=== PATIENT | male | born 1945 | race Caucasian/White ===

== ENCOUNTER 2019-06-10 15:19 | Inpatient (IN) ==
--- NOTE | 2019-06-10 16:53 | EKG Report ---
Test Performed on : 06/10/2019 4:11:18 PM Test Reason : ED. No order in [place] Blood Pressure : / mmHG Vent. Rate : 135 BPM Atrial Rate : 147 BPM P-R Int : 000 ms QRS Dur : 094 ms QT Int : 310 ms P-R-T Axes : 000 028 270 degrees QTc Int : 465 ms Atrial fibrillation. with rapid ventricular response. with occasional ventricular-paced complexes Incomplete right bundle branch block ST & T wave abnormality, consider inferior ischemia ST & T wave abnormality, consider anterolateral ischemia Abnormal ECG No previous ECGs available Unconfirmed Result
[2019-06-10] MEDS ORDERED: CARDIZEM IV ONE (16:58)
[2019-06-10 17:17] LABS: BASO# 0.08 X1000 (0.0-0.2); BASO% 0.9 % (0.0-0.8); EOS# 0.24 X1000 (0.0-0.7); EOS% 2.7 % (0.0-10.0); HEMATOCRIT 49.3 % (42.0-52.0); HEMOGLOBIN 15.4 g/dL (14.0-18.0); IMM GRAN# 0.02 X1000 (0.0-0.04); IMM GRAN% 0.2 % (0.0-0.5); LYMPH# 2.06 X1000 (1.2-3.4); LYMPH% 23.5 % (20.5-51.1); MCH 28.8 PG (27-31); MCHC 31.2 g/dL (33-37); MCV 92.3 FL (81-99); MONO# 0.73 X1000 (0.11-0.59); MONO% 8.3 % (1.7-9.3); MPV 12.6 FL (7.4-10.4); NEUT# 5.63 X1000 (1.4-6.5); NEUT% 64.4 % (42.2-75.2); PLT 125 X1000 (130-400); RBC 5.34 XMIL (4.7-6.1); RDW 13.3 % (11.5-14.5); WBC 8.76 X1000 (4.8-10.8)
[2019-06-10 17:22] LABS: PROTIME 13.3 Seconds (11.0-16.0)
[2019-06-10 17:23] LABS: PTT 26.3 Seconds (22.3-41.8)
--- NOTE | 2019-06-10 17:27 | Diag Imaging Result Doc PS360 ---
EXAM: CHEST-1 VIEW - 06/10/2019 HISTORY: sepsis protocol TECHNIQUE: Portable chest one view COMPARISON: None. FINDINGS: Heart size appears upper normal. There is transvenous cardiac pacemaker present. The lungs appear clear. There are apparent mild pleural thickening and calcified pleural plaque at the mid to upper right chest which are likely long-standing. There is no pleural effusion or pneumothorax identified. IMPRESSION: No evidence of acute disease. Electronically signed by Christiano Martinez 06/10/2019 5:24 PM
[2019-06-10 18:02] LABS: ALBUMIN 3.6 g/dL (3.5-5.0); POTASSIUM 4.4 mmol/L (3.5-5.1)
[2019-06-10] MEDS ORDERED: VANCOMYCIN 1 GM/NS 1 GM/250 ML IVPB IV ONE (18:22)
[2019-06-10 18:26] LABS: CALCIUM 9.5 mg/dL (8.8-10.2); CREATININE 1.3 mg/dL (0.7-1.2); TOTAL BILIRUBIN 0.34 mg/dL (0.20-1.00); TOTAL PROTEIN 7.1 g/dL (6.3-8.3)
[2019-06-10] MEDS ORDERED: ZOSYN 4.5 GM in NS 100 ML IV ONE (18:28)
[2019-06-10] MEDS ORDERED: D50W SYRINGE IV PRN (18:29)
[2019-06-10] MEDS ORDERED: HUMULIN R 100 UNIT in NS 100 ML IV SCH (18:30)
[2019-06-10] MEDS ORDERED: NS 1,000 ML IV ONE ×2 (18:31→19:43)
[2019-06-10 18:33] LABS: URINE SOURCE CLEAN CATCH
[2019-06-10 18:37] LABS: BILIRUBIN URINE NEGATIVE (NEGATIVE); BLOOD URINE SMALL (NEGATIVE); COLOR YELLOW; GLUCOSE URINE >1000 mg/dL (NEGATIVE); KETONE URINE NEGATIVE (NEGATIVE); LEUKOCYTES URINE NEGATIVE (NEGATIVE); NITRITE URINE NEGATIVE (NEGATIVE); PROTEIN URINE NEGATIVE (NEGATIVE); SP GRAVITY URINE 1.032; TURBIDITY URINE CLEAR (CLEAR); UROBILINOGEN URINE NORMAL (NORMAL)
[2019-06-10 18:38] LABS: UR EPITHELIAL CELLS <10 /HPF (<10); URINE BACTERIA NEGATIVE /HPF; URINE RBC <10 /HPF (<10); URINE WBC <10 /HPF (<10)
--- NOTE | 2019-06-10 18:42 | PROVIDER DOCUMENTATION ---
This chart was entered by Adelina Rose Scribe, acting as scribe for Qiana Rogers MD. HPI-General Adult - General Source: patient - History of Present Illness -Gen Adult Nature of Presenting Problems: 74 yowm presents to the ed with c/o pain to left 4th digit on foot. pt sts has been present for 2 days and has worsened since he noticed it. pt does have on rt anterior ahn redness and multiple sores noted. pt on exam is pleasant and happy and is in no distress Location of Pain/Injury: reports: feet (left foot 4th digit/RLE) Quality of Pain: reports: aching Severity: reports: moderate Onset/Duration: reports: 2 days ago Context/Activities at Onset: reports: light activity Modifying Factors: improves with: nothing Associated Symptoms: reports: joint pain, trouble walking (secondary to pain). denies: back/neck pain, chest pain, cough, diarrhea, fever/chills, headaches, nausea, shortness of breath, vomiting Similar Symptoms Previously?: Yes (has poor circulation to BLE and DM) Recently seen or treated by another doctor?: No (has no pcp) <Qiana Rogers - Last Filed: 06/10/19 18:58> <Paola Brown - Last Filed: 06/10/19 19:43> - General Chief Complaint: Sores/Lesions Stated Complaint: INFECTED TOE,SORES ON RT LEG Time Seen by Provider: 06/10/19 16:27 Allergies/Adverse Reactions: Patient Allergies Allergy/AdvReac Type Severity Reaction Status Date / Time procaine [From Novocain] Allergy Unknown Verified 06/10/19 16:52 Home Medications: Home Medication List Medication Instructions Recorded Confirmed Last Taken Type Aspirin 81 mg PO BID 06/10/19 06/10/19 Unknown History Duloxetine [Cymbalta] 20 mg PO BID 06/10/19 06/10/19 Unknown History Metoprolol Tartrate 100 mg PO BID 06/10/19 06/10/19 Unknown History Review of Systems - Adult - REVIEW OF SYSTEMS - ADULT Constitutional: denies: chills, fever Eyes: reports: no symptoms reported Ears, Nose, Mouth & Throat: reports: no symptoms reported Cardiovascular: reports: irregular heart rate, poor circulation. denies: chest pain, syncope Respiratory: denies: cough, shortness of breath Gastrointestinal: denies: diarrhea, nausea, vomiting Genitourinary: reports: no symptoms reported Musculoskeletal: denies: back pain, neck pain Integumentary: reports: see HPI, skin sores/ulcer Neurological: reports: no symptoms reported Psychiatric: reports: no symptoms reported Endocrine: reports: no symptoms reported Hematologic/Lymphatic: reports: no symptoms reported Allergic/Immunologic: reports: no symptoms reported All Other Systems: Reviewed and Negative <Qiana Rogers - Last Filed: 06/10/19 18:58> Past History - Adult - PAST MEDICAL HISTORY-ADULT Review of Records: reports: Old Records Reviewed, Nursing Assessment Review, Medications Reviewed, Social history reviewed & non-contributory. 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) Psychiatric: reports: denies history Endocrine/Immune: reports: Diabetes Diabetes Type: Type 2 Other Conditions: reports: denies history - PRIOR SURGERIES/PROCEDURES Surgical/Procedure History: reports: reviewed, not pertinent - IMMUNIZATION STATUS Childhood Immunizations: See Nurse Assessment Flu Vaccine: See Nurse Assessment - FAMILY HISTORY Family History: reviewed, not pertinent - SOCIAL HISTORY Smoking: denies Substance Use: denies Living Situation: family <Qiana Rogers - Last Filed: 06/10/19 18:58> Physical Exam-General - PHYSICAL EXAM-ADULT Initial Vital Signs Reviewed: Yes - CONSTITUTIONAL General Appearance: appears well, alert, no apparent distress, obese - EYES Eyes: PERRL/EOMI, pink conjunctivae - HEAD, EARS, NOSE, MOUTH & THROAT HENMT: moist mucous membranes, dental decay - NECK Neck: non-tender, full range of motion, supple, normal inspection - RESPIRATORY Respiratory: chest non-tender, lungs clear, normal breath sounds - CARDIOVASCULAR Cardiovascular: irregularly irregular (145). negative: normal peripheral pulses - CHEST (BREASTS) Chest/Breast: deferred - GASTROINTESTINAL (ABDOMEN) Abdominal Exam: normal bowel sounds, non tender, soft - GENITOURINARY Male Genitalia: deferred Rectal Exam: deferred Hemoccult Exam: deferred - LYMPHATIC Lymphatic: no adenopathy - MUSCULOSKELETAL Back Exam: no CVA tenderness, no vertebral tenderness Extremity: erythema (RLE), swelling (left 4th digit), tenderness (left 4th digit with redness and skin change/RLE anterior with healing sores and redness noted) . negative: normal inspection - SKIN Integumentary: normal color (generalized), normal turgor, warm/dry, erythema (RLE), swelling (left 4th toe), tenderness (left 4th toe) - NEUROLOGIC Neurologic: grossly normal - PSYCHIATRIC Psych/Mental Status: normal mood/affect, normal thought content, normal thought process, oriented x 3 <Qiana Rogers - Last Filed: 06/10/19 18:58> Progress - PLAN OF CARE/RESULTS Progress/Plan/Lab Results: Vital Signs - 8 hr 06/10/19 16:03 Temperature 97.9 F Pulse Rate 145 H Respiratory Rate 16 Blood Pressure 97/58 O2 Sat by Pulse Oximetry 93 L Orders Category Date Time Status Cardiac Monitoring DIRECTED Care 06/10/19 16:52 Active IV Insertion ORDERED Care 06/10/19 16:52 Completed Notify MD of + Sepsis Screen NOW Care 06/10/19 16:52 Active Notify Physician As Ordered Care 06/10/19 16:52 Active CHEST-1 VIEW [RAD] Stat Exams 06/10/19 16:52 Ordered BLOOD CULTURE [BLDCUL] Stat Lab 06/10/19 16:55 Ordered CBC WITH DIFF [HEME] Stat Lab 06/10/19 16:55 Ordered CK PROFILE [SP CHEM] Stat Lab 06/10/19 16:55 Ordered COMPREHENSIVE METABOLIC PANEL [CHEM] Stat Lab 06/10/19 16:55 Ordered LACTATE, PLASMA [CHEM] Q3H Lab 06/10/19 16:55 Ordered LACTATE, PLASMA [CHEM] Q3H Lab 06/10/19 20:00 Uncollected LACTATE, PLASMA [CHEM] Q3H Lab 06/10/19 23:00 Uncollected PROTIME WITH INR [COAG] Stat Lab 06/10/19 16:55 Ordered PTT [COAG] Stat Lab 06/10/19 16:55 Ordered TROPONIN T Stat Lab 06/10/19 16:55 Ordered URINALYSIS W/POSS RFLX CULT [URINALYSIS] Stat Lab 06/10/19 16:52 Uncollected Diltiazem [Cardizem] Med 06/10/19 16:58 Once 10 mg IV NOW ONE Oxygen Device Stat Oth 06/10/19 16:52 Active EKG [EKG] Stat Ther 06/10/19 16:11 Draft Result Diagrams: 06/10/19 16:44 06/10/19 16:44 - REASSESSMENT Reassessment #1 Time Reassessed: 17:26 Status: unchanged (pt still in no distress and pleasant) - EKG 1 Time of EKG reading by physician:: 16:11 EKG Read and Signed by:: Qiana Rogers EKG Interpretation (*Must complete 3 of following elements*): Abnormal Rate: 135 Rhythm: afib w/ rvr w/ occ ventricular paced complexes [place]: normal QRS: RBB (incomplete) PA Interval: normal Comments: st/t wave abnormality consideranterolatera/inferior ischemia - XRAY 1 XRAY: Bilateral XRAY Study: Chest Impression: See EMR Report (EXAM: CHEST-1 VIEW - 06/10/2019 HISTORY: sepsis protocol TECHNIQUE: Portable chest one view COMPARISON: None. FINDINGS: Heart size appears upper normal. There is transvenous cardiac pacemaker present. The lungs appear clear. There are apparent mild pleural thickening and calcified pleural plaque at the mid to upper right chest which are likely long- standing. There is no pleural effusion or pneumothorax identified. IMPRESSION: No evidence of acute disease. Electronically signed by Christiano Martinez 06/10/2019 5:24 PM 06/10/19 1724 Interpreting Physician: Christiano Martinez MD Dictated Date/Time: 06/10/19 1722 cc: Qiana Rogers MD; None,PCP) - ULTRASOUND (By Radiology) 1 US Study: other Impression: See EMR Report (aterial vascular study good flow to both feet, TONIE 0.9 bilaterally) - CHANGE OF SHIFT REPORT (ED Provider) 1 Report Given and Care Transferred to:: [facility] Time of Transfer: 19:00 Items Pending: Physician Consult/Arrival (waiting for hourly shift manager hospitalist to call back for admission) <Qiana Rogers - Last Filed: 06/10/19 18:58> - PLAN OF CARE/RESULTS Progress/Plan/Lab Results: Vital Signs - 8 hr 06/10/19 16:03 06/10/19 16:18 06/10/19 17:49 Temperature 97.9 F Pulse Rate 145 H 147 H 120 H Respiratory Rate 16 21 24 Blood Pressure 97/58 149/100 129/98 O2 Sat by Pulse Oximetry 93 L 96 95 06/10/19 17:51 06/10/19 17:53 06/10/19 17:57 Temperature Pulse Rate 137 H 110 H 110 H Respiratory Rate 23 24 18 Blood Pressure 134/78 118/101 124/67 O2 Sat by Pulse Oximetry 97 97 95 06/10/19 18:02 06/10/19 18:06 06/10/19 18:11 Temperature Pulse Rate 98 H 100 H 118 H Respiratory Rate 25 H 26 H 24 Blood Pressure 133/87 131/71 131/82 O2 Sat by Pulse Oximetry 94 L 95 97 06/10/19 18:17 06/10/19 19:00 06/10/19 19:30 Temperature Pulse Rate 114 H 89 Respiratory Rate 19 20 Blood Pressure 151/84 O2 Sat by Pulse Oximetry 95 95 96 06/10/19 19:32 Temperature Pulse Rate 103 H Respiratory Rate 23 Blood Pressure 134/75 O2 Sat by Pulse Oximetry 96 Laboratory Results - last 24 hr 06/10/19 06/10/19 06/10/19 16:44 16:44 16:44 WBC 8.76 RBC 5.34 Hgb 15.4 Hct 49.3 MCV 92.3 MCH 28.8 MCHC 31.2 L RDW Std Deviation 13.3 Plt Count 125 L MPV 12.6 H Immature Gran % (Auto) 0.2 Neut % (Auto) 64.4 Lymph % (Auto) 23.5 [place] % (Auto) 8.3 Eos % (Auto) 2.7 Baso % (Auto) 0.9 H Immature Gran # (Auto) 0.02 Neut # (Auto) 5.63 Lymph # (Auto) 2.06 [place] # (Auto) 0.73 H Eos # (Auto) 0.24 Baso # (Auto) 0.08 PT 13.3 INR 1.00 PTT (Actin FS) 26.3 Sodium 131 L Potassium 4.4 Chloride 89 L Carbon Dioxide 26 Anion Gap 16 BUN 14 Creatinine 1.3 H Estimated GFR/1.73 m2 54 BUN/Creatinine Ratio 11 Glucose 674 H* POC Glucose Calculated Osmolality 295 Calcium 9.5 Total Bilirubin 0.34 AST 18 ALT 12 Alkaline Phosphatase 133 H Creatine Kinase 47 Troponin T Total Protein 7.1 Albumin 3.6 Globulin 3.5 Albumin/Globulin Ratio 1.0 Plasma Lactate Urine Source Urine Color Urine Turbidity Urine pH Ur Specific [place] Urine Protein Ur Glucose (Stick) Ur Ketones (Stick) Urine Blood Urine Nitrite Urine Bilirubin Urobilinogen Dipstick Urine Leukocytes Urine WBC (Auto) Urine RBC (Auto) U Epithel Cells (Auto) Urine Bacteria (Auto) 06/10/19 06/10/19 06/10/19 16:44 16:44 18:30 WBC RBC Hgb Hct MCV MCH MCHC RDW Std Deviation Plt Count MPV Immature Gran % (Auto) Neut % (Auto) Lymph % (Auto) [place] % (Auto) Eos % (Auto) Baso % (Auto) Immature Gran # (Auto) Neut # (Auto) Lymph # (Auto) [place] # (Auto) Eos # (Auto) Baso # (Auto) PT INR PTT (Actin FS) Sodium Potassium Chloride Carbon Dioxide Anion Gap BUN Creatinine Estimated GFR/1.73 m2 BUN/Creatinine Ratio Glucose POC Glucose Calculated Osmolality Calcium Total Bilirubin AST ALT Alkaline Phosphatase Creatine Kinase Troponin T < 0.010 Total Protein Albumin Globulin Albumin/Globulin Ratio Plasma Lactate 3.8 H Urine Source CLEAN CATCH Urine Color YELLOW Urine Turbidity CLEAR Urine pH 6.0 Ur Specific [place] 1.032 Urine Protein NEGATIVE Ur Glucose (Stick) >1000 A Ur Ketones (Stick) NEGATIVE Urine Blood SMALL A Urine Nitrite NEGATIVE Urine Bilirubin NEGATIVE Urobilinogen Dipstick NORMAL Urine Leukocytes NEGATIVE Urine WBC (Auto) <10 Urine RBC (Auto) <10 U Epithel Cells (Auto) <10 Urine Bacteria (Auto) NEGATIVE 06/10/19 19:11 WBC RBC Hgb Hct MCV MCH MCHC RDW Std Deviation Plt Count MPV Immature Gran % (Auto) Neut % (Auto) Lymph % (Auto) [place] % (Auto) Eos % (Auto) Baso % (Auto) Immature Gran # (Auto) Neut # (Auto) Lymph # (Auto) [place] # (Auto) Eos # (Auto) Baso # (Auto) PT INR PTT (Actin FS) Sodium Potassium Chloride Carbon Dioxide Anion Gap BUN Creatinine Estimated GFR/1.73 m2 BUN/Creatinine Ratio Glucose POC Glucose 500 H Calculated Osmolality Calcium Total Bilirubin AST ALT Alkaline Phosphatase Creatine Kinase Troponin T Total Protein Albumin Globulin Albumin/Globulin Ratio Plasma Lactate Urine Source Urine Color Urine Turbidity Urine pH Ur Specific [place] Urine Protein Ur Glucose (Stick) Ur Ketones (Stick) Urine Blood Urine Nitrite Urine Bilirubin Urobilinogen Dipstick Urine Leukocytes Urine WBC (Auto) Urine RBC (Auto) U Epithel Cells (Auto) Urine Bacteria (Auto) Orders Category Date Time Status Cardiac Monitoring DIRECTED Care 06/10/19 16:52 Active FSBS/Accucheck Result Q1H Care 06/10/19 18:29 Active IV Insertion ORDERED Care 06/10/19 16:52 Completed If symptomatic Hypoglycemia As Ordered Care 06/10/19 18:29 Active Notify MD of + Sepsis Screen NOW Care 06/10/19 16:52 Active Notify Physician As Ordered Care 06/10/19 16:52 Active CHEST-1 VIEW [RAD] Stat Exams 06/10/19 16:52 Completed ABG [RESP] Routine Lab 06/10/19 19:13 Ordered BASIC METABOLIC PANEL [CHEM] Q4H Lab 06/10/19 18:33 Ordered BASIC METABOLIC PANEL [CHEM] Q4H Lab 06/10/19 22:30 Uncollected BLOOD CULTURE [BLDCUL] Stat Lab 06/10/19 16:44 Results CBC WITH DIFF [HEME] Stat Lab 06/10/19 16:44 Completed CK PROFILE [SP CHEM] Stat Lab 06/10/19 16:44 Completed COMPREHENSIVE METABOLIC PANEL [CHEM] Stat Lab 06/10/19 16:44 Completed LACTATE, PLASMA [CHEM] Lab 06/10/19 20:00 Uncollected LACTATE, PLASMA [CHEM] Lab 06/10/19 23:00 Uncollected LACTATE, PLASMA [CHEM] Q3H Lab 06/10/19 16:44 Completed MAGNESIUM [CHEM] Q4H Lab 06/10/19 18:33 Ordered MAGNESIUM [CHEM] Q4H Lab 06/10/19 22:30 Uncollected PHOSPHORUS [CHEM] Q4H Lab 06/10/19 18:33 Ordered PHOSPHORUS [CHEM] Q4H Lab 06/10/19 22:30 Uncollected PROTIME WITH INR [COAG] Stat Lab 06/10/19 16:44 Completed PTT [COAG] Stat Lab 06/10/19 16:44 Completed TROPONIN T Stat Lab 06/10/19 16:44 Completed URINALYSIS W/POSS RFLX CULT [URINALYSIS] Stat Lab 06/10/19 18:30 Completed 0.9% Sodium Chloride Inj [Ns] 1,000 ml Med 06/10/19 18:31 Discontinued IV 999 mls/hr 0.9% Sodium Chloride Inj [Ns] 100 ml Med 06/10/19 18:30 Discontinued Insulin Human Regular [Humulin R] 100 unit IV Per Protocol mls/hr Dextrose 50% Syringe [D50w Syringe] Med 06/10/19 18:29 Discontinued See Protocol IV DIRECTED PRN PRN Diltiazem [Cardizem] Med 06/10/19 16:58 Discontinued 10 mg IV NOW ONE Insulin Human Regular [Humulin R] Med 06/10/19 19:27 Discontinued 10 unit IV NOW ONE Piperacillin/Tazobactam [Zosyn] 4.5 gm Med 06/10/19 18:28 Discontinued 0.9% Sodium Chloride Inj [Ns] 100 ml IV NOW Vancomycin 1 gm/Ns Med 06/10/19 18:22 Discontinued 1 gm in 250 ml IV NOW Oxygen Device Stat Oth 06/10/19 16:52 Active Arterial Bilateral Legs Stat Ther 06/10/19 16:58 Completed EKG [EKG] Stat Ther 06/10/19 16:11 Draft Result Diagrams: 06/10/19 16:44 06/10/19 16:44 - REASSESSMENT Reassessment #2 Status: other (pt signed out to me pending admission by hospitalist. Discussed case with hospitalist who will see and admit pt.) <Paola Brown - Last Filed: 06/10/19 19:43> Departure - Departure Date of Disposition Decision: 06/10/19 Time of Disposition Decision: 18:41 Certified Medical Emergency: Emergent - Critical Care Note This patient required my direct & personal management of CC.: Yes Total Time (mins): 38 Critical Care Statement: This patient required my direct personal management to treat or rule out processes, the absence of which, could potentiallly result in sudden, clinically significant life or limb threatening deterioration. <Qiana Rogers - Last Filed: 06/10/19 18:58> <Paola Brown - Last Filed: 06/10/19 19:43> - Departure DIAGNOSIS: Hyperglycemia, History of atrial fibrillation Cellulitis Qualifiers: Site of cellulitis: extremity Site of cellulitis of extremity: toe Laterality: unspecified laterality Qualified Code(s): L03.039 - Cellulitis of unspecified toe Sepsis Qualifiers: Sepsis type: sepsis due to unspecified organism Sepsis acute organ dysfunction status: unspecified Qualified Code(s): A41.9 - Sepsis, unspecified organism Disposition: ADMITTED INPATIENT 09 Condition: Critical Attestation - Physician/ BAILEE Attestation Patient care was provided by Advanced Practice Provider:: No The physician spent face to face time with patient:: Yes Advanced Practice Provider documentation review:: Supervising physician onsite and consulted in the evaluation and care of this patient. The physician did have a face to face encounter with the patient. <Qiana Rogers - Last Filed: 06/10/19 18:58> This chart was documented by the indicated scribe, (Adelina Rose Scribe) and accurately reflects the services I performed and decisions made by Ken richmond Mai Huu, MD, as attested by the provider's signature.
[2019-06-10] MEDS ORDERED: HUMULIN R IV ONE (19:27)
[2019-06-10 20:51] LABS: AGAP 12; BUN 14 mg/dL (8-22); CALCIUM 9.1 mg/dL (8.8-10.2); CHLORIDE 95 mmol/L (98-107); COSMO 279; ESTIMATED GFR > 60; GLUCOSE 350 mg/dL (70-104); MAGNESIUM 1.5 mg/dL (1.5-2.7); PHOSPHORUS 2.5 mg/dL (2.7-4.5); POTASSIUM 4.4 mmol/L (3.5-5.1); SODIUM 132 mmol/L (136-145); TCO2 25 mmol/L (25-35)
[2019-06-10] MEDS ORDERED: ZOFRAN IV PRN (22:33)
[2019-06-10] MEDS ORDERED: TYLENOL PO PRN (22:33)
[2019-06-10] MEDS ORDERED: VANCOMYCIN IV PER PHARMACY MISC SCH (22:33)
[2019-06-10] MEDS ORDERED: VANCOMYCIN 1,500 MG in NS 250 ML IV ONE (23:00)
[2019-06-10] MEDS: NS 1,000 ML IV SCH (23:03)
[2019-06-10] MEDS: ZOSYN 3.375 GM in NS 50 ML IV SCH (23:03)
--- NOTE | 2019-06-11 02:48 | HISTORY AND PHYSICAL ---
PRIMARY CARE PHYSICIAN: None. CHIEF COMPLAINT: Left Foot 4th digit pain. HISTORY OF PRESENTING ILLNESS: A 74-year-old male with a history of diabetes mellitus type 2, chronic atrial fibrillation and hypertension presented to the emergency department with several days history of having a sort of ulcer on his left foot 4th digit. He states that it was getting painful and he was not feeling well. Patient was seen in the ER and he was evaluated. He had laboratories drawn that did show he also had an elevated lactate. Due to suspicion of possible sepsis, it was thought that he would need admission for further management. The patient was also noted to have elevated blood glucose in the 500 ranges. He was given insulin and his blood glucose had improved. At the time of my examination, patient denied any headache, fever, chills, chest pain, shortness of breath, hemoptysis, melena or weight changes, but complained of left foot 4th digit pain. PAST MEDICAL HISTORY: Include diabetes mellitus type 2, chronic atrial fibrillation, hypertension. PAST SURGICAL HISTORY: Appendectomy, right eye cataract surgery. ALLERGIES: Procaine. CURRENT MEDICATIONS: Aspirin 81 mg p.o. b.i.d., duloxetine 20 mg p.o. b.i.d., metoprolol 100 mg p.o. b.i.d. SOCIAL HISTORY: He is a former smoker. Denies any history of alcohol or illicit drug use. FAMILY HISTORY: No history of coronary artery disease. REVIEW OF SYSTEMS: Fourteen point review of systems as listed in HPI. Other systems negative. PHYSICAL EXAMINATION: GENERAL: Cooperative, friendly male. He is without any respiratory distress. VITAL SIGNS: Temperature 97.9 degrees, pulse 145, respirations 16, blood pressure 97/58. He is saturating 92%. HEENT: Atraumatic, normocephalic. Extraocular movements intact. PERRLA. NECK: No masses. CHEST: Clear to auscultation. CARDIOVASCULAR: Irregular. ABDOMEN: Soft. Positive bowel sounds. EXTREMITIES: Left foot 4th digit there is some erythema noted. GENITOURINARY: No bladder distention. SKIN: Warm. LABORATORIES AND STUDIES: WBCs 8.76, hemoglobin 15.4, hematocrit 49.3, platelets 125,000. Sodium 132, potassium 4.4, chloride 95, CO2 is 25, BUN is 14, creatinine is 1.0, glucose is 500. Plasma lactate is 4.0. ASSESSMENT: This is a 74-year-old male with a history of diabetes mellitus type 2, chronic atrial fibrillation and hypertension presented to emergency department with several days history of having worsening left foot 4th digit pain. He was evaluated the emergency department. There is moderate erythema on the left 4th digit toe and due to suspicion of possible early sepsis it was thought that he would need admission for further management. 1. Left foot 4th digit cellulitis. 2. Suspected early sepsis. 3. Diabetes mellitus type 2 with hyperglycemia. 4. Chronic atrial fibrillation. 5. Hypertension. PLAN: 1. We will admit patient to medical floor with telemetry. 2. We will check blood cultures. Start patient on IV antibiotics. 3. Continue with IV fluids. 4. We will monitor blood glucose and put patient on sliding scale insulin regimen. 5. Continue to monitor patient on telemetry. 6. We will monitor blood pressure. Resume antihypertensive agent. 7. Put patient on DVT prophylaxis with SCDs and Lovenox. 8. We will continue to follow, and reassess and make further recommendation based on patient's clinical course. cc: Stephane Herr MD MTDD
[2019-06-11] MEDS ORDERED: PREVNAR 13 IM ONE (02:55)
[2019-06-11] MEDS ORDERED: CALMOSEPTINE OINTMENT TOP PRN (04:56)
[2019-06-11] MEDS: ZOSYN 3.375 GM in NS 50 ML IV SCH ×4 (05:06→21:57)
[2019-06-11] MEDS: HUMULIN R SUBQ SCH ×4 (06:49→21:57)
[2019-06-11 07:06] LABS: BASO# 0.05 X1000 (0.0-0.2); BASO% 0.6 % (0.0-0.8); EOS# 0.39 X1000 (0.0-0.7); HEMATOCRIT 46.6 % (42.0-52.0); HEMOGLOBIN 14.6 g/dL (14.0-18.0); IMM GRAN# 0.02 X1000 (0.0-0.04); IMM GRAN% 0.3 % (0.0-0.5); LYMPH% 23.1 % (20.5-51.1); MCH 28.9 PG (27-31); MCHC 31.3 g/dL (33-37); MCV 92.3 FL (81-99); MONO# 0.59 X1000 (0.11-0.59); MONO% 7.6 % (1.7-9.3); MPV 13.1 FL (7.4-10.4); NEUT# 4.95 X1000 (1.4-6.5); NEUT% 63.4 % (42.2-75.2); PLT 126 X1000 (130-400); RBC 5.05 XMIL (4.7-6.1); RDW 13.5 % (11.5-14.5)
[2019-06-11] MEDS: NS 1,000 ML IV SCH (10:16)
[2019-06-11] MEDS: LOPRESSOR PO SCH ×2 (10:19→21:57)
[2019-06-11] MEDS: LOVENOX SUBQ SCH (10:19)
[2019-06-11] MEDS: CYMBALTA PO SCH ×2 (10:19→21:57)
[2019-06-11] MEDS: ASPIRIN PO SCH ×2 (10:19→21:57)
[2019-06-11 12:37] LABS: AGAP 14; BUN 9 mg/dL (8-22); CALCIUM 8.3 mg/dL (8.8-10.2); CHLORIDE 101 mmol/L (98-107); COSMO 281; ESTIMATED GFR > 60; GLUCOSE 291 mg/dL (70-104); PHOSPHORUS 2.8 mg/dL (2.7-4.5); POTASSIUM 4.3 mmol/L (3.5-5.1); SODIUM 136 mmol/L (136-145); TCO2 21 mmol/L (25-35)
[2019-06-11] MEDS: VANCOMYCIN 2,100 MG in NS 500 ML IV SCH (17:54)
--- NOTE | 2019-06-12 00:11 | PROGRESS NOTE ---
DATE: 06/11/2019 SUBJECTIVE: Patient reports feeling fine. Denies any fever or chills. OBJECTIVE: Vital Signs: Temperature 97.8 degrees, heart rate 67, respiratory rate 18, blood pressure 119/61, O2 saturation 96% on room air. General: This is a chronically ill-appearing, 74-year-old, male, lying in bed, in no acute distress. Cardiovascular: S1, S2 heard. No murmurs, gallops, or rubs. Regular rate and rhythm. Respiratory: Clear bilaterally to auscultation. No work of breathing or using accessory muscles. Abdomen: Soft, nontender to palpation. Bowel sounds present. No organomegaly. Extremities: Left foot 4th digit with some erythema noted. Neurological: Patient alert and oriented x3. Moves 4 extremities. LABORATORY DATA: Reviewed. ASSESSMENT AND PLAN: 1. Left foot 4th digit cellulitis. We will continue with vancomycin and Zosyn. The patient had early sepsis, but definitely that is resolved. He is not tachycardic. He is doing fine. 2. Diabetes mellitus type 2. We will continue with sliding scale insulin, and Accu-Chek before meals and also at bedtime. 3. Chronic atrial fibrillation. Heart rate is within control. We will continue with same medication. cc: Bryant Anne MD
[2019-06-12] MEDS: NS 1,000 ML IV SCH ×2 (01:04→07:35)
[2019-06-12] MEDS: ZOSYN 3.375 GM in NS 50 ML IV SCH ×4 (04:42→22:30)
[2019-06-12 06:43] LABS: BASO# 0.08 X1000 (0.0-0.2); EOS# 0.56 X1000 (0.0-0.7); EOS% 7.2 % (0.0-10.0); HEMATOCRIT 46.5 % (42.0-52.0); HEMOGLOBIN 14.3 g/dL (14.0-18.0); IMM GRAN# 0.02 X1000 (0.0-0.04); IMM GRAN% 0.3 % (0.0-0.5); LYMPH# 2.01 X1000 (1.2-3.4); MCH 28.9 PG (27-31); MCHC 30.8 g/dL (33-37); MCV 93.9 FL (81-99); MONO% 6.5 % (1.7-9.3); MPV 12.5 FL (7.4-10.4); NEUT# 4.56 X1000 (1.4-6.5); PLT 108 X1000 (130-400); RBC 4.95 XMIL (4.7-6.1); RDW 13.6 % (11.5-14.5); WBC 7.73 X1000 (4.8-10.8)
[2019-06-12 07:12] LABS: AGAP 12; BUN 9 mg/dL (8-22); CALCIUM 8.6 mg/dL (8.8-10.2); CHLORIDE 106 mmol/L (98-107); COSMO 287; CREATININE 1.1 mg/dL (0.7-1.2); ESTIMATED GFR > 60; GLUCOSE 194 mg/dL (70-104); POTASSIUM 3.8 mmol/L (3.5-5.1); SODIUM 142 mmol/L (136-145); TCO2 24 mmol/L (25-35)
[2019-06-12] MEDS: HUMULIN R SUBQ SCH ×4 (07:29→22:30)
[2019-06-12] MEDS: LOVENOX SUBQ SCH (08:43)
[2019-06-12] MEDS: CYMBALTA PO SCH ×2 (08:43→21:11)
[2019-06-12] MEDS: ASPIRIN PO SCH ×2 (08:43→21:12)
[2019-06-12] MEDS: LOPRESSOR PO SCH ×2 (08:43→21:12)
[2019-06-12] MEDS: VANCOMYCIN 2,100 MG in NS 500 ML IV SCH (10:17)
--- NOTE | 2019-06-12 11:43 | VASCULAR LAB ---
PROCEDURE NAME: Arterial Bilateral Legs - 06/10/2019 REQUESTING PHYSICIAN: Dr. Rogers in the Emergency Department. DEPARTMENT STORE DOOR GREETER: Tyshawn. INDICATION: Wounds to bilateral legs. SEGMENTAL PRESSURES: Right brachial 154, left 139; right proximal thigh 162, left 190; right distal thigh 152, left 174; right popliteal 140, left 159; right dorsalis pedis 153, left 145; right posterior tibial 140, left 135; right great toe 72, left 67; right TONIE 0.99, left 0.94; right TBI 0.51, left 0.44. WAVEFORMS: Waveforms were almost monophasic proximally, and continue to be that way throughout the entirety of the course. There is at least a faint waveform noted in the toes bilaterally with the exception of the right great toe and second toe and fifth toe. 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 The patient's TBIs suggest moderate-to- severe disease, which would limit wound healing. The patient would benefit from CT angiography to delineate the anatomy better. cc: Noman Ghosh MD
[2019-06-12] MEDS ORDERED: SODIUM PHOSPHATE 40 MMOL in NS 250 ML IV ONE (12:15)
--- NOTE | 2019-06-12 13:04 | PROGRESS NOTE ---
DATE: 06/12/2019 SUBJECTIVE: Patient reports feeling okay. OBJECTIVE: Vital Signs: Temperature 97.6 degrees, heart rate 82, respiratory rate 14, blood pressure 104/59, O2 saturation 96% on room air. General: This is a 74-year-old male, lying in bed, in no acute distress. Cardiovascular: S1, S2 heard. No murmurs, gallops, or rubs. Regular rate and rhythm. Respiratory: Clear bilaterally to auscultation. No work of breathing or using accessory muscles. Abdomen: Soft, nontender to palpation. Bowel sounds present. No organomegaly. Extremities: No clubbing, cyanosis, or edema. There is a left foot with 4th digit with some erythema noted. Neurological: Patient alert oriented x3. Moves 4 extremities. LABORATORY DATA: Reviewed. ASSESSMENT/PLAN: 1. Left foot 4th digit cellulitis. We will continue with vancomycin and Zosyn. Patient's white cell count is normal. No tachycardia, no fever. We will continue with the same management. 2. Diabetes mellitus type 2. We will continue with sliding scale insulin. Accu-Chek before meals and also at bedtime. 3. Chronic atrial fibrillation. Heart rate is well controlled. We will continue with same management. 4. Disposition. I think this patient continues to improve, so if so, he can be discharged tomorrow. cc: Bryant Anne MD
[2019-06-13] MEDS: ZOSYN 3.375 GM in NS 50 ML IV SCH ×2 (04:10→10:31)
[2019-06-13] MEDS: VANCOMYCIN 2,100 MG in NS 500 ML IV SCH (05:06)
[2019-06-13] MEDS: HUMULIN R SUBQ SCH ×2 (06:49→10:59)
[2019-06-13 07:07] LABS: BASO% 1.3 % (0.0-0.8); EOS# 0.66 X1000 (0.0-0.7); EOS% 8.3 % (0.0-10.0); HEMATOCRIT 47.4 % (42.0-52.0); HEMOGLOBIN 14.6 g/dL (14.0-18.0); IMM GRAN# 0.02 X1000 (0.0-0.04); IMM GRAN% 0.3 % (0.0-0.5); LYMPH# 2.56 X1000 (1.2-3.4); LYMPH% 32.1 % (20.5-51.1); MCH 29.2 PG (27-31); MCHC 30.8 g/dL (33-37); MCV 94.8 FL (81-99); MONO# 0.57 X1000 (0.11-0.59); MONO% 7.1 % (1.7-9.3); MPV 12.2 FL (7.4-10.4); NEUT# 4.07 X1000 (1.4-6.5); NEUT% 50.9 % (42.2-75.2); PLT 113 X1000 (130-400); RDW 13.7 % (11.5-14.5); WBC 7.98 X1000 (4.8-10.8)
[2019-06-13 07:25] LABS: CALCIUM 8.6 mg/dL (8.8-10.2); CREATININE 1.2 mg/dL (0.7-1.2); PHOSPHORUS 3.4 mg/dL (2.7-4.5); POTASSIUM 3.7 mmol/L (3.5-5.1)
[2019-06-13 07:50] VITALS: BP 109/65
[2019-06-13] MEDS: LOVENOX SUBQ SCH (08:40)
[2019-06-13] MEDS: CYMBALTA PO SCH (08:40)
[2019-06-13] MEDS: LOPRESSOR PO SCH (08:40)
[2019-06-13] MEDS: ASPIRIN PO SCH (08:40)
--- NOTE | 2019-06-14 15:04 | DISCHARGE SUMMARY ---
ADMISSION DATE: 06/10/2019 DISCHARGE DATE: 06/13/2019 DISCHARGE DIAGNOSES: 1. Left foot 4-digit cellulitis. 2. Diabetes mellitus type 2. 3. Chronic atrial fibrillation. 4. Hypertension. CONSULTATIONS: None. PROCEDURES: 1. Chest x-ray done on admission showed no evidence of acute disease. 2. 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 The patient's DVI suggests moderate to severe disease which would be healing. The patient would benefit from CT angiography to delineate anatomy better. HOSPITAL COURSE: In brief, this is a 74-year-old male with history of diabetes mellitus type 2, chronic atrial fibrillation and hypertension who presented the emergency department complaining of an ulcer in the left foot in the 4th digits. Patient was started on IV antibiotics. Clinically, patient started to get better. At the time of discharge, we do see some clinical improvement so the patient is going to be discharged in stable condition with oral antibiotics and he is going to be seen by his primary care doctor in 1 week from now. PHYSICAL EXAMINATION: Vital Signs: Temperature 97.7 degrees, heart rate 68, respiratory rate 20, blood pressure 109/65, O2 saturation 96% on room air. General: This is a 74-year-old male, lying in bed, in no acute distress. Cardiovascular: Exam S1, S2 heard. No murmurs, gallops, or rubs. Regular rate and rhythm. Respiratory: Exam clear bilaterally to auscultation. No work of breathing or using accessory muscles. Abdomen: Soft, nontender to palpation. Bowel sounds present. No organomegaly. Extremities: No clubbing, cyanosis, or edema. Peripheral pulses present in both legs. Neurological: The patient is alert and oriented x3. Moves 4 extremities. DISCHARGE DISPOSITION: Home to self-care. DISCHARGE INSTRUCTION: Follow up with his primary care physician in 1-2 weeks. DISCHARGE MEDICATIONS: 1. Doxycycline 100 mg 1 tablet p.o. b.i.d. for 10 days. 2. Cefuroxime 500 mg 1 tablet p.o. b.i.d. for 10 days. 3. Aspirin 81 mg 1 tablet p.o. daily. 4. Cymbalta 20 mg 1 tablet p.o. b.i.d. 5. Metoprolol tartrate 100 mg 1 tablet p.o. b.i.d.. cc: Bryant Anne MD
== END 2019-06-13 13:04 | disposition home or self-care (01) | DRG 872 ==
LOC: ED 15:19 → SUATTDRO 22:10 → 4N 22:10
PROVIDERS: ATTEND Internal Medicine